=== PATIENT | male | born 1995 | race Caucasian/White ===

== ENCOUNTER 2017-01-09 16:56 | Emergency (ER) | payer OTHER | END 2017-01-09 18:57 | disposition home or self-care (01) | LOC: FER 16:56 | DX: Z20.2 Contact with and (suspected) exposure to infections with a predominantly sexual mode of transmission (principal) ==

== ENCOUNTER 2021-06-28 14:49 | Emergency (ER) | payer OTHER ==
[~2021-06-28 14:49] MED LIST: MOTRIN600 MG PO
[2021-06-28 16:10] LABS: BASOPHIL 0.2 % (0-2); EOSINOPHIL 0.1 % (0-5); HCT 50.8 % (42.0-52.0); LYMPHOCYTE 6.2 % (15-48); MCH 30.2 pg (25.0-31.0); MCHC 33.5 g/dL (32.0-36.0); MCV 90.2 fL (78.0-100.0); MONOCYTE 5.1 % (0-12); MPV 9.7 fL (6.0-9.5); NEUTROPHIL 88.1 % (41-80); NRBC 0; PLT 223 K/uL (150-400); RBC 5.63 M/uL (4.70-6.00); RDW 12.5 % (11.5-14.0); WBC 10.3 K/uL (4.0-10.5)
[2021-06-28 16:37] LABS: ALBUMIN 4.5 g/dL (3.4-5.0); BILIRUBIN - TOTAL 1.9 mg/dL (0.2-1.0); BUN/CREAT RATIO (CALC) 12.2 RATIO; CREATININE 0.98 mg/dL (0.67-1.17); GLOBULIN (CALCULATION) 3.2 g/dL; POTASSIUM 3.7 mmol/L (3.5-5.1); TOTAL PROTEIN 7.7 g/dL (6.4-8.2)
[2021-06-28] MEDS ORDERED: ONDANSETRON HCL4 MG PO (19:39)
== END 2021-06-28 20:14 | disposition home or self-care (01) ==
LOC: FER 14:49
PROVIDERS: Emergency Medicine
DX: R11.2 Nausea with vomiting, unspecified (principal); R19.7 Diarrhea, unspecified; Z20.822 Contact with and (suspected) exposure to COVID-19
CPT/HCPCS: 36415; 80053; 83690; 85025; 99284; U0002

== ENCOUNTER 2021-07-14 10:05 | Emergency (ER) | payer OTHER ==
[~2021-07-14 10:05] MED LIST changes: +ONDANSETRON HCL4 MG PO
== END 2021-07-14 11:20 | disposition home or self-care (01) ==
LOC: FER 10:05
DX: J06.9 Acute upper respiratory infection, unspecified (principal); Z20.822 Contact with and (suspected) exposure to COVID-19
CPT/HCPCS: 99283